=== PATIENT | male | born 1955 | race Caucasian/White ===

== ENCOUNTER → 2022-06-15 | Outpatient (REF) | payer OTHER | LOC: M LAB REF 18:50 | PROVIDERS: ATTEND Student in an Organized Health Care Education/Training Program | DX: R19.7 Diarrhea, unspecified (principal) ==

== ENCOUNTER → 2022-07-09 | Outpatient (CLI) | payer OTHER, MEDICAID ==
[2022-07-09 13:17] LABS: BASO # 0.1 10^3/uL (0.0-0.2); BASO % 1.3 % (0.0-1.0); EOS # 0.2 10^3/uL (0.0-0.5); EOS % 2.8 % (0.0-3.0); HEMATOCRIT 47.6 % (42.0-52.0); HEMOGLOBIN 15.8 g/dl (13.5-17.5); LYMPH # 1.7 10^3/uL (1.5-5.0); LYMPH % 30.7 % (24.0-44.0); MEAN CORPUSCULAR HEMOGLOBIN 31.5 pg (27.0-33.0); MEAN CORPUSCULAR HGB CONC 33.2 g/dl (32.0-36.5); MONO # 0.5 10^3/uL (0.0-0.8); NEUTROPHILS % 55.8 % (36.0-66.0); PLATELET COUNT, AUTOMATED 222 10^3/uL (150-450); RED BLOOD COUNT 5.01 10^6/uL (4.30-6.10); WHITE BLOOD COUNT 5.4 10^3/uL (4.0-10.0)
[2022-07-09 13:52] LABS: ALBUMIN 3.6 G/DL (3.2-5.2); ALKALINE PHOSPHATASE 95 U/L (46-116); ALT/SGPT 26 U/L (7.0-40); AST/SGOT 16 U/L (<34); BILIRUBIN,TOTAL 0.4 MG/DL (0.3-1.2); BLOOD UREA NITROGEN 14 MG/DL (9-23); CARBON DIOXIDE LEVEL 29 MMOL/L (20-31); CHLORIDE LEVEL 105 MMOL/L (98-107); CHOLESTEROL LEVEL 120 MG/DL (<200); CHOLESTEROL RISK RATIO 4.24 (<5); CREATININE FOR GFR 0.87 MG/DL (0.70-1.30); GLOMERULAR FILTRATION RATE > 60.0 (>49); GLUCOSE, FASTING 134 MG/DL (74-106); HDL CHOLESTEROL 28.3 MG/DL (>40); LDL CHOLESTEROL 49.1 MG/DL (<100); NON-HDL-C 91.7 MG/DL; POTASSIUM SERUM 3.9 MMOL/L (3.5-5.1); SODIUM LEVEL 137 MMOL/L (136-145); TOTAL PROTEIN 5.9 G/DL (5.7-8.2); TRIGLYCERIDES LEVEL 213 MG/DL (<150)
[2022-07-09 16:24] LABS: HEMOGLOBIN A1c 5.9 % (4.0-6.0)
== END ==
LOC: M WUC 09:48
PROVIDERS: ATTEND Student in an Organized Health Care Education/Training Program
DX: Z00.00 Encounter for general adult medical examination without abnormal findings (principal); R73.03 Prediabetes; I10 Essential (primary) hypertension

== ENCOUNTER 2022-10-09 10:03 | Day surgery (SDC) | payer OTHER ==
[~2022-10-09] VITALS: Ht 175.3 cm; Wt 111.6 kg
[~2022-10-09 10:03] MED LIST: ACYC1TAB PO; AMLO1TAB24 PO; ATOR1TAB19 PO; CLON1TAB17 PO; LISI20TA37 PO; MAGN200T PO; METO1TAB7 PO; NS 1,000 ML IV ONE; ZINC100T3 PO
[2022-10-09] MEDS ORDERED: propofoL 200 MG/20 ML VIAL As Ordered ONE ×2 (11:36→11:55)
[2022-10-09] MEDS ORDERED: GLYCOPYRROLATE INJ 0.2 MG/ML 2 ML VIAL As Ordered ONE (11:36)
[2022-10-09] MEDS ORDERED: LIDOCAINE 2% 100MG/5ML SDV (FOR ANES.) As Ordered ONE (11:36)
[2022-10-09 13:00] VITALS: BP 145/77; O2SAT 96
== END 2022-10-09 12:55 | disposition home or self-care (01) ==
LOC: M OPP 10:03
PROVIDERS: ATTEND Internal Medicine Gastroenterology
DX: Z12.11 Encounter for screening for malignant neoplasm of colon (principal); Z86.010 Personal history of colon polyps; K62.82 Dysplasia of anus; D12.2 Benign neoplasm of ascending colon; K63.5 Polyp of colon; K62.0 Anal polyp; K64.8 Other hemorrhoids; F17.200 Nicotine dependence, unspecified, uncomplicated; Z79.02 Long term (current) use of antithrombotics/antiplatelets; Z79.2 Long term (current) use of antibiotics; Z79.899 Other long term (current) drug therapy

== ENCOUNTER → 2023-05-07 | Outpatient (CLI) | payer OTHER, MEDICAID, MEDICARE ==
[~2023-05-07] MED LIST changes: -NS 1,000 ML IV ONE
== END ==
LOC: M WUC 09:18
PROVIDERS: ATTEND Family Medicine
DX: M25.512 Pain in left shoulder (principal)

== ENCOUNTER → 2023-05-13 | Outpatient (REF) | payer MEDICARE, MEDICAID | LOC: M SFHCDERM 12:38 | PROVIDERS: ATTEND Nurse Practitioner Family | DX: L57.0 Actinic keratosis (principal); C44.529 Squamous cell carcinoma of skin of other part of trunk ==

== ENCOUNTER → 2023-10-22 | Outpatient (CLI) | payer MEDICARE, MEDICAID ==
[2023-10-22 13:59] LABS: HEMATOCRIT 49.3 % (42.0-52.0); HEMOGLOBIN 17.2 g/dl (13.5-17.5); MEAN CORPUSCULAR HEMOGLOBIN 32.1 pg (27.0-33.0); MEAN CORPUSCULAR HGB CONC 34.9 g/dl (32.0-36.5); MEAN CORPUSCULAR VOLUME 92.1 fl (80.0-96.0); PLATELET COUNT, AUTOMATED 226 10^3/uL (150-450); RED BLOOD COUNT 5.35 10^6/uL (4.30-6.10); WHITE BLOOD COUNT 7.3 10^3/uL (4.0-10.0)
[2023-10-22 14:01] LABS: ALBUMIN 4.1 G/DL (3.2-5.2); ALKALINE PHOSPHATASE 81 U/L (46-116); ALT/SGPT 19 U/L (7.0-40); AST/SGOT < 8 U/L (<34); BILIRUBIN,TOTAL 0.5 MG/DL (0.3-1.2); BLOOD UREA NITROGEN 23 MG/DL (9-23); CALCIUM LEVEL 9.1 MG/DL (8.3-10.6); CARBON DIOXIDE LEVEL 28 MMOL/L (20-31); CHLORIDE LEVEL 103 MMOL/L (98-107); CHOLESTEROL LEVEL 112 MG/DL (<200); CHOLESTEROL RISK RATIO 4.14 (<5); CREATININE FOR GFR 0.92 MG/DL (0.70-1.30); GLOMERULAR FILTRATION RATE > 60.0 (>49); GLUCOSE, FASTING 133 MG/DL (74-106); LDL CHOLESTEROL 55.4 MG/DL (<100); POTASSIUM SERUM 3.6 MMOL/L (3.5-5.1); SODIUM LEVEL 137 MMOL/L (136-145); TOTAL PROTEIN 6.7 G/DL (5.7-8.2); TRIGLYCERIDES LEVEL 148 MG/DL (<150)
[2023-10-22 14:03] LABS: THYROID STIMULATING HORMONE 0.833 uIU/ML (0.55-4.78)
== END ==
LOC: M WUC 09:39
PROVIDERS: ATTEND Internal Medicine Cardiovascular Disease
DX: I10 Essential (primary) hypertension (principal); R06.02 Shortness of breath; E78.5 Hyperlipidemia, unspecified

== ENCOUNTER → 2023-10-27 | Outpatient (CLI) | payer MEDICARE, MEDICAID | LOC: M PLAIMG 08:16 | PROVIDERS: ATTEND Internal Medicine Cardiovascular Disease | DX: R06.02 Shortness of breath (principal) ==

== ENCOUNTER 2023-11-01 14:41 | Inpatient (IN) | payer MEDICARE, MEDICAID ==
[~2023-11-01] VITALS: Ht 175.3 cm; Wt 118.4 kg
[2023-11-01 00:47] VITALS: BP 176/98; TEMP 97.6; O2SAT 97
[~2023-11-01 14:41] MED LIST changes: -AMLO1TAB25 PO; -BUPR150T12 PO; -CLON1TAB8 PO
[2023-11-01 15:53] LABS: BASO % 0.5 % (0.0-1.0); EOS # 0.1 10^3/uL (0.0-0.5); EOS % 0.6 % (0.0-3.0); HEMATOCRIT 49.2 % (42.0-52.0); HEMOGLOBIN 17.7 g/dl (13.5-17.5); LYMPH # 1.4 10^3/uL (1.5-5.0); LYMPH % 15.7 % (24.0-44.0); MEAN CORPUSCULAR HEMOGLOBIN 32.2 pg (27.0-33.0); MEAN CORPUSCULAR VOLUME 89.5 fl (80.0-96.0); MONO # 0.8 10^3/uL (0.0-0.8); MONO % 8.8 % (2.0-8.0); NEUTROPHILS # 6.6 10^3/uL (1.5-8.5); NEUTROPHILS % 73.8 % (36.0-66.0); PLATELET COUNT, AUTOMATED 220 10^3/uL (150-450); WHITE BLOOD COUNT 8.9 10^3/uL (4.0-10.0)
[2023-11-01 16:16] LABS: CK-MB VALUE MASS 1.2 NG/ML (<3.6)
[2023-11-01 16:18] LABS: ALKALINE PHOSPHATASE 76 U/L (46-116); ALT/SGPT 17 U/L (7.0-40); AST/SGOT 11 U/L (<34); BILIRUBIN,DIRECT 0.3 MG/DL (<0.4); BILIRUBIN,TOTAL 0.9 MG/DL (0.3-1.2); BLOOD UREA NITROGEN 16 MG/DL (9-23); CARBON DIOXIDE LEVEL 26 MMOL/L (20-31); CHLORIDE LEVEL 103 MMOL/L (98-107); CREATININE FOR GFR 0.92 MG/DL (0.70-1.30); GLOMERULAR FILTRATION RATE > 60.0 (>49); GLUCOSE, FASTING 91 MG/DL (74-106); POTASSIUM SERUM 4.3 MMOL/L (3.5-5.1); SODIUM LEVEL 135 MMOL/L (136-145); TOTAL PROTEIN 6.9 G/DL (5.7-8.2)
[2023-11-01 16:19] LABS: THYROID STIMULATING HORMONE 1.038 uIU/ML (0.55-4.78); THYROXINE (T4) 10.7 UG/DL (4.5-10.9)
[2023-11-01 16:24] LABS: CPK CREATINE PHOSPHOKINASE 56 U/L (46-171); MB/CK RELATIVE INDEX 2.14 (< OR =4)
[2023-11-01] MEDS ORDERED: ISOVUE-370 76% 100ML VIAL As Ordered ONE (18:22)
[2023-11-01 19:18] LABS: CK-MB VALUE MASS 1.5 NG/ML (<3.6)
[2023-11-01 19:19] LABS: MB/CK RELATIVE INDEX 2.34 (< OR =4)
[2023-11-01] MEDS ORDERED: CLON1TAB8 PO (20:36)
[2023-11-01] MEDS ORDERED: AMLO1TAB25 PO (20:36)
[2023-11-01] MEDS ORDERED: BUPR150T12 PO (20:38)
[2023-11-01] MEDS ORDERED: HOME MED LIST COMPLETE! XX SCH (20:40)
[2023-11-01] MEDS ORDERED: ONDANSETRON 4MG 2ML VIAL IV PRN (21:00)
[2023-11-01] MEDS: DOCUSATE SODIUM 100MG CAPSULE PO SCH (21:00)
[2023-11-01] MEDS ORDERED: BISACODYL 10MG SUPP PR PRN (21:00)
[2023-11-01] MEDS ORDERED: LEVALBUTEROL 1.25MG 0.5ML CONCENTRATE NEB NEB PRN (21:00)
[2023-11-01 22:14] LABS: ABG BASE EXCESS 0.2 (-2.0-2.0); ABG HCO3 23.1 MMOL/L (22.0-26.0); ABG O2 SATURATION 95.7 % (95.0-99.0); ABG PARTIAL PRESSURE CO2 33.5 mmHg (35.0-45.0); ABG PARTIAL PRESSURE O2 76.6 mmHg (75.0-100.0); ABG STANDARD HCO3 24.6 MMOL/L. (22.0-26.0); ABG TOTAL CO2 24.2 MMOL/L (23.0-31.0); ABG pH (ARTERIAL) 7.457 UNITS (7.350-7.450)
[2023-11-01] MEDS: clonazePAM 1 MG TAB PO SCH (22:34)
[2023-11-01] MEDS: ACYCLOVIR 200 MG CAPSULE PO SCH (22:34)
[2023-11-01] MEDS: ATORVASTATIN 10 MG TAB PO SCH (22:34)
[2023-11-01] MEDS: METOPROLOL SUCC (TopROL XL) 50MG **XL** TAB PO SCH (22:34)
[2023-11-01] MEDS: buPROPion **XL** TABLET 150MG (WELLBUTRIN XL) PO SCH (22:34)
[2023-11-01] MEDS: HEPARIN SOD (PORCINE) 5000UNITS/ML 1ML VIAL/SYRINGE SC SCH (22:38)
[2023-11-02] VITALS (22 sets, daily range): BP systolic 131–176; BP diastolic 66–98; TEMP 97–97.8; O2SAT 89–99
[2023-11-02] MEDS: LEVALBUTEROL 1.25MG 0.5ML CONCENTRATE NEB NEB SCH (01:09)
[2023-11-02 05:41] LABS: BASO # 0.1 10^3/uL (0.0-0.2); BASO % 0.7 % (0.0-1.0); EOS # 0.1 10^3/uL (0.0-0.5); EOS % 1.5 % (0.0-3.0); HEMATOCRIT 47.2 % (42.0-52.0); HEMOGLOBIN 16.5 g/dl (13.5-17.5); LYMPH # 1.4 10^3/uL (1.5-5.0); LYMPH % 18.4 % (24.0-44.0); MEAN CORPUSCULAR HEMOGLOBIN 31.4 pg (27.0-33.0); MEAN CORPUSCULAR VOLUME 89.7 fl (80.0-96.0); MONO # 0.9 10^3/uL (0.0-0.8); MONO % 11.6 % (2.0-8.0); NEUTROPHILS % 67.1 % (36.0-66.0); PLATELET COUNT, AUTOMATED 207 10^3/uL (150-450); RED BLOOD COUNT 5.26 10^6/uL (4.30-6.10); WHITE BLOOD COUNT 7.5 10^3/uL (4.0-10.0)
[2023-11-02 05:57] LABS: BLOOD UREA NITROGEN 13 MG/DL (9-23); CALCIUM LEVEL 8.2 MG/DL (8.3-10.6); CARBON DIOXIDE LEVEL 30 MMOL/L (20-31); CHLORIDE LEVEL 101 MMOL/L (98-107); CREATININE FOR GFR 0.94 MG/DL (0.70-1.30); GLOMERULAR FILTRATION RATE > 60.0 (>49); GLUCOSE, FASTING 95 MG/DL (74-106); POTASSIUM SERUM 3.6 MMOL/L (3.5-5.1); SODIUM LEVEL 137 MMOL/L (136-145)
[2023-11-02] MEDS: MOM 30ML SUSPENSION UDC PO SCH (11:00)
[2023-11-02] MEDS: PANTOPRAZOLE 40MG TAB (PROTONIX) PO SCH (11:00)
[2023-11-02 11:21] LABS: PH BODY FLUID 7.654 UNITS (NOT ESTABLISHED); SOURCE, BODY FLUID pH PLEURAL
[2023-11-02 11:44] LABS: SOURCE, BODY FLUID ALBUMIN PLEURAL
[2023-11-02 11:49] LABS: SOURCE, BODY FLUID GLUCOSE PLEURAL; SOURCE, BODY FLUID TRIG PLEURAL; TRIGLYCERIDE, BODY FLUID 38 MG/DL (NOT ESTABLISHED)
[2023-11-02 11:50] LABS: LDH, BODY FLUID 449 U/L (NOT ESTABLISHED); SOURCE, BODY FLUID LDH PLEURAL
[2023-11-02 11:51] LABS: AMYLASE, BODY FLUID 31 U/L (NOT ESTABLISHED); CHOLESTEROL, BODY FLUID 48 MG/DL (NOT ESTABLISHED); SOURCE, BODY FLUID AMYLASE PLEURAL; SOURCE, BODY FLUID CHOL PLEURAL
[2023-11-02 12:07] LABS: APPEARANCE, BODY FLUID HAZY (CLEAR); PLEURAL FL COLOR YELLOW (COLORLESS); SOURCE, BODY FLUID PLEURAL
[2023-11-02 12:09] LABS: SOURCE, BODY FLUID TOT PROTEIN PLEURAL; TOTAL PROTEIN, BODY FLUID 3.7 G/DL (NOT ESTABLISHED)
[2023-11-02] MEDS: ACETAMINOPHEN TAB 650MG DOSE (2X325MG) PO PRN (12:59)
[2023-11-02] MEDS: KETOROLAC 30 MG/ML 1ML VIAL IV PRN (21:07)
[2023-11-03] VITALS (26 sets, daily range): BP systolic 119–164; BP diastolic 72–90; TEMP 96.9–97.8; O2SAT 90–97
[2023-11-03 05:16] LABS: BASO # 0.1 10^3/uL (0.0-0.2); BASO % 0.6 % (0.0-1.0); EOS # 0.2 10^3/uL (0.0-0.5); HEMATOCRIT 45.8 % (42.0-52.0); HEMOGLOBIN 15.8 g/dl (13.5-17.5); LYMPH # 1.4 10^3/uL (1.5-5.0); LYMPH % 17.1 % (24.0-44.0); MEAN CORPUSCULAR HEMOGLOBIN 31.4 pg (27.0-33.0); MEAN CORPUSCULAR HGB CONC 34.5 g/dl (32.0-36.5); MEAN CORPUSCULAR VOLUME 91.1 fl (80.0-96.0); MONO # 0.9 10^3/uL (0.0-0.8); MONO % 10.3 % (2.0-8.0); NEUTROPHILS # 5.7 10^3/uL (1.5-8.5); PLATELET COUNT, AUTOMATED 214 10^3/uL (150-450); RED BLOOD COUNT 5.03 10^6/uL (4.30-6.10); WHITE BLOOD COUNT 8.3 10^3/uL (4.0-10.0)
[2023-11-03 05:42] LABS: BLOOD UREA NITROGEN 20 MG/DL (9-23); CALCIUM LEVEL 7.9 MG/DL (8.3-10.6); CARBON DIOXIDE LEVEL 28 MMOL/L (20-31); CHLORIDE LEVEL 102 MMOL/L (98-107); CREATININE FOR GFR 1.06 MG/DL (0.70-1.30); GLOMERULAR FILTRATION RATE > 60.0 (>49); GLUCOSE, FASTING 98 MG/DL (74-106); POTASSIUM SERUM 3.6 MMOL/L (3.5-5.1); SODIUM LEVEL 135 MMOL/L (136-145)
[2023-11-03 08:02] LABS: CORTISOL AM 12.4 UG/DL (4.3-22.4)
[2023-11-03] MEDS: KETOROLAC 30 MG/ML 1ML VIAL IV PRN (23:38)
[2023-11-04] VITALS (13 sets, daily range): BP systolic 127–169; BP diastolic 66–96; TEMP 97–97.9; O2SAT 94–97
[2023-11-04 06:06] LABS: BASO % 0.6 % (0.0-1.0); EOS # 0.2 10^3/uL (0.0-0.5); EOS % 2.7 % (0.0-3.0); HEMATOCRIT 44.2 % (42.0-52.0); HEMOGLOBIN 15.2 g/dl (13.5-17.5); LYMPH # 1.2 10^3/uL (1.5-5.0); LYMPH % 17.4 % (24.0-44.0); MEAN CORPUSCULAR HEMOGLOBIN 31.5 pg (27.0-33.0); MEAN CORPUSCULAR HGB CONC 34.4 g/dl (32.0-36.5); MEAN CORPUSCULAR VOLUME 91.5 fl (80.0-96.0); MONO # 0.7 10^3/uL (0.0-0.8); MONO % 10.3 % (2.0-8.0); NEUTROPHILS # 4.8 10^3/uL (1.5-8.5); NEUTROPHILS % 68.4 % (36.0-66.0); PLATELET COUNT, AUTOMATED 205 10^3/uL (150-450); RED BLOOD COUNT 4.83 10^6/uL (4.30-6.10); WHITE BLOOD COUNT 7.1 10^3/uL (4.0-10.0)
[2023-11-04 06:39] LABS: BLOOD UREA NITROGEN 20 MG/DL (9-23); CALCIUM LEVEL 8.1 MG/DL (8.3-10.6); CARBON DIOXIDE LEVEL 28 MMOL/L (20-31); CHLORIDE LEVEL 102 MMOL/L (98-107); CREATININE FOR GFR 0.93 MG/DL (0.70-1.30); GLOMERULAR FILTRATION RATE > 60.0 (>49); GLUCOSE, FASTING 106 MG/DL (74-106); POTASSIUM SERUM 3.6 MMOL/L (3.5-5.1); SODIUM LEVEL 137 MMOL/L (136-145)
[2023-11-04 10:10] LABS: APPEARANCE, URINE CLEAR (CLEAR); BACTERIA, URINE AUTO NEGATIVE (NEGATIVE); BILIRUBIN, URINE AUTO NEGATIVE (NEGATIVE); BLOOD, URINE BLOOD NEGATIVE (NEGATIVE); COLOR, URINE YELLOW (YELLOW); GLUCOSE, URINE (UA) AUTO NEGATIVE (NEGATIVE); KETONE, URINE AUTO NEGATIVE (NEGATIVE); LEUKOCYTE ESTERASE, URINE AUTO NEGATIVE (NEGATIVE); MUCUS, URINE SMALL (NEGATIVE); NITRITE, URINE AUTO NEGATIVE (NEGATIVE); PROTEIN, URINE AUTO 1+ mg/dL (NEGATIVE); RBC, URINE AUTO 1 /HPF (0-3); SPECIFIC GRAVITY URINE AUTO 1.028 (1.002-1.035); SQUAMOUS EPITHELIAL CELL UR AU 0 /HPF (0-6); UROBILINOGEN, URINE AUTO 0.2 mg/dL (0.0-2.0); WBC, URINE AUTO 1 /HPF (0-3)
[2023-11-04 12:43] LABS: INR 1.06; PROTHROMBIN TIME 13.5 SECONDS (12.5-14.5)
[2023-11-04] MEDS: CARVedilol 12.5 MG TAB PO SCH (13:04)
[2023-11-04] MEDS: dexAMETHasone 1 MG TAB PO ONE (14:57)
[2023-11-05] VITALS (17 sets, daily range): BP systolic 133–172; BP diastolic 65–101; TEMP 97–98.2; O2SAT 92–98
[2023-11-05 07:20] LABS: BASO % 0.4 % (0.0-1.0); EOS # 0.2 10^3/uL (0.0-0.5); EOS % 2.2 % (0.0-3.0); HEMATOCRIT 45.4 % (42.0-52.0); HEMOGLOBIN 15.9 g/dl (13.5-17.5); LYMPH # 1.1 10^3/uL (1.5-5.0); LYMPH % 14.2 % (24.0-44.0); MEAN CORPUSCULAR HEMOGLOBIN 31.8 pg (27.0-33.0); MEAN CORPUSCULAR VOLUME 90.8 fl (80.0-96.0); MONO # 0.6 10^3/uL (0.0-0.8); MONO % 7.2 % (2.0-8.0); NEUTROPHILS # 5.8 10^3/uL (1.5-8.5); NEUTROPHILS % 75.5 % (36.0-66.0); PLATELET COUNT, AUTOMATED 237 10^3/uL (150-450); WHITE BLOOD COUNT 7.7 10^3/uL (4.0-10.0)
[2023-11-05 07:50] LABS: BLOOD UREA NITROGEN 14 MG/DL (9-23); CALCIUM LEVEL 8.4 MG/DL (8.3-10.6); CARBON DIOXIDE LEVEL 28 MMOL/L (20-31); CHLORIDE LEVEL 104 MMOL/L (98-107); CREATININE FOR GFR 0.79 MG/DL (0.70-1.30); GLOMERULAR FILTRATION RATE > 60.0 (>49); GLUCOSE, FASTING 114 MG/DL (74-106); POTASSIUM SERUM 4.4 MMOL/L (3.5-5.1); SODIUM LEVEL 137 MMOL/L (136-145)
[2023-11-05] MEDS ORDERED: fentaNYL 100 MCG/2 ML INJECTION As Ordered ONE (10:08)
[2023-11-05] MEDS ORDERED: LIDOCAINE 1% MDV 20ML VIAL As Ordered ONE (10:09)
[2023-11-05] MEDS ORDERED: MIDAZOLAM INJ 2MG/2ML VIAL As Ordered ONE (10:09)
[2023-11-05] MEDS: NS 1,000 ML IV SCH (12:50)
[2023-11-05] MEDS: CARVedilol 12.5 MG TAB PO SCH (12:54)
[2023-11-05] MEDS: FUROSEMIDE 40MG/4ML VIAL IV ONE (17:44)
[2023-11-06] VITALS (24 sets, daily range): BP systolic 126–180; BP diastolic 67–96; TEMP 97–98; O2SAT 90–98
[2023-11-06 04:24] LABS: BASO % 0.7 % (0.0-1.0); EOS # 0.2 10^3/uL (0.0-0.5); EOS % 3.7 % (0.0-3.0); HEMATOCRIT 42.7 % (42.0-52.0); HEMOGLOBIN 14.5 g/dl (13.5-17.5); LYMPH # 1.4 10^3/uL (1.5-5.0); LYMPH % 22.3 % (24.0-44.0); MEAN CORPUSCULAR VOLUME 91.4 fl (80.0-96.0); MONO # 0.6 10^3/uL (0.0-0.8); MONO % 9.6 % (2.0-8.0); NEUTROPHILS # 3.9 10^3/uL (1.5-8.5); PLATELET COUNT, AUTOMATED 214 10^3/uL (150-450); RED BLOOD COUNT 4.67 10^6/uL (4.30-6.10); WHITE BLOOD COUNT 6.2 10^3/uL (4.0-10.0)
[2023-11-06 04:47] LABS: BLOOD UREA NITROGEN 16 MG/DL (9-23); CALCIUM LEVEL 8.2 MG/DL (8.3-10.6); CARBON DIOXIDE LEVEL 28 MMOL/L (20-31); CHLORIDE LEVEL 104 MMOL/L (98-107); GLOMERULAR FILTRATION RATE > 60.0 (>49); GLUCOSE, FASTING 106 MG/DL (74-106); POTASSIUM SERUM 3.8 MMOL/L (3.5-5.1); SODIUM LEVEL 137 MMOL/L (136-145)
[2023-11-06] MEDS: FUROSEMIDE 40MG/4ML VIAL IV ONE (10:24)
[2023-11-06] MEDS: CARVedilol 12.5 MG TAB PO ONE (13:06)
[2023-11-06] MEDS: CARVedilol 12.5 MG TAB PO SCH (20:05)
[2023-11-07] VITALS (28 sets, daily range): BP systolic 127–167; BP diastolic 73–88; TEMP 96.2–97.8; O2SAT 90–96
[2023-11-07 05:47] LABS: BASO # 0.1 10^3/uL (0.0-0.2); EOS # 0.2 10^3/uL (0.0-0.5); EOS % 3.8 % (0.0-3.0); HEMATOCRIT 40.3 % (42.0-52.0); HEMOGLOBIN 14.1 g/dl (13.5-17.5); LYMPH # 1.3 10^3/uL (1.5-5.0); LYMPH % 21.5 % (24.0-44.0); MEAN CORPUSCULAR HEMOGLOBIN 31.4 pg (27.0-33.0); MEAN CORPUSCULAR VOLUME 89.8 fl (80.0-96.0); MONO # 0.6 10^3/uL (0.0-0.8); NEUTROPHILS # 3.7 10^3/uL (1.5-8.5); PLATELET COUNT, AUTOMATED 213 10^3/uL (150-450); RED BLOOD COUNT 4.49 10^6/uL (4.30-6.10); WHITE BLOOD COUNT 5.8 10^3/uL (4.0-10.0)
[2023-11-07 06:18] LABS: BLOOD UREA NITROGEN 18 MG/DL (9-23); CALCIUM LEVEL 8.1 MG/DL (8.3-10.6); CARBON DIOXIDE LEVEL 28 MMOL/L (20-31); CHLORIDE LEVEL 103 MMOL/L (98-107); CREATININE FOR GFR 0.94 MG/DL (0.70-1.30); GLOMERULAR FILTRATION RATE > 60.0 (>49); GLUCOSE, FASTING 109 MG/DL (74-106); POTASSIUM SERUM 3.9 MMOL/L (3.5-5.1); SODIUM LEVEL 135 MMOL/L (136-145)
[2023-11-07] MEDS: CHLORTHALIDONE 25 MG TAB PO SCH (08:55)
[2023-11-08] VITALS (27 sets, daily range): BP systolic 120–157; BP diastolic 65–80; TEMP 97–98; O2SAT 90–100
[2023-11-08] MEDS ORDERED: PROHANCE 279.3MG/ML 5ML VIAL As Ordered ONE (17:00)
[2023-11-08] MEDS ORDERED: PROHANCE 279.3MG/ML 15ML VIAL As Ordered ONE (17:00)
[2023-11-09] VITALS (31 sets, daily range): BP systolic 122–163; BP diastolic 73–87; TEMP 97.1–99; O2SAT 88–96
[2023-11-09 08:08] LABS: BASO # 0.1 10^3/uL (0.0-0.2); BASO % 0.7 % (0.0-1.0); EOS # 0.2 10^3/uL (0.0-0.5); EOS % 2.8 % (0.0-3.0); HEMATOCRIT 43.2 % (42.0-52.0); HEMOGLOBIN 15.2 g/dl (13.5-17.5); LYMPH % 11.9 % (24.0-44.0); MEAN CORPUSCULAR HEMOGLOBIN 31.3 pg (27.0-33.0); MEAN CORPUSCULAR HGB CONC 35.2 g/dl (32.0-36.5); MEAN CORPUSCULAR VOLUME 88.9 fl (80.0-96.0); MONO # 0.8 10^3/uL (0.0-0.8); MONO % 9.5 % (2.0-8.0); NEUTROPHILS # 6.2 10^3/uL (1.5-8.5); PLATELET COUNT, AUTOMATED 231 10^3/uL (150-450); RED BLOOD COUNT 4.86 10^6/uL (4.30-6.10); WHITE BLOOD COUNT 8.3 10^3/uL (4.0-10.0)
[2023-11-09 08:33] LABS: BLOOD UREA NITROGEN 14 MG/DL (9-23); CALCIUM LEVEL 8.2 MG/DL (8.3-10.6); CARBON DIOXIDE LEVEL 28 MMOL/L (20-31); CHLORIDE LEVEL 102 MMOL/L (98-107); CREATININE FOR GFR 0.83 MG/DL (0.70-1.30); GLOMERULAR FILTRATION RATE > 60.0 (>49); GLUCOSE, FASTING 114 MG/DL (74-106); MAGNESIUM LEVEL 1.6 MG/DL (1.8-2.4); SODIUM LEVEL 133 MMOL/L (136-145)
[2023-11-09] MEDS: MAG SULF 1GM/100ML (MAG RUN) 1 GM in IV 1 EA IV SCH (12:24)
[2023-11-09] MEDS: oxyCODONE 5MG TAB PO PRN (12:24)
[2023-11-10] VITALS (52 sets, daily range): BP systolic 94–157; BP diastolic 51–82; TEMP 96.8–98.1; O2SAT 90–99
[2023-11-10] MEDS ORDERED: flumazeniL 0.5MG/5ML VIAL IV PRN (06:00)
[2023-11-10 06:23] LABS: BASO # 0.1 10^3/uL (0.0-0.2); BASO % 0.5 % (0.0-1.0); EOS # 0.2 10^3/uL (0.0-0.5); EOS % 1.9 % (0.0-3.0); HEMATOCRIT 46.2 % (42.0-52.0); HEMOGLOBIN 15.8 g/dl (13.5-17.5); LYMPH # 1.3 10^3/uL (1.5-5.0); LYMPH % 13.9 % (24.0-44.0); MEAN CORPUSCULAR HEMOGLOBIN 31.2 pg (27.0-33.0); MEAN CORPUSCULAR HGB CONC 34.2 g/dl (32.0-36.5); MEAN CORPUSCULAR VOLUME 91.1 fl (80.0-96.0); MONO # 1.4 10^3/uL (0.0-0.8); NEUTROPHILS # 6.6 10^3/uL (1.5-8.5); NEUTROPHILS % 68.7 % (36.0-66.0); PLATELET COUNT, AUTOMATED 255 10^3/uL (150-450); RED BLOOD COUNT 5.07 10^6/uL (4.30-6.10); WHITE BLOOD COUNT 9.6 10^3/uL (4.0-10.0)
[2023-11-10 06:54] LABS: BLOOD UREA NITROGEN 15 MG/DL (9-23); CALCIUM LEVEL 8.3 MG/DL (8.3-10.6); CARBON DIOXIDE LEVEL 32 MMOL/L (20-31); CHLORIDE LEVEL 97 MMOL/L (98-107); CREATININE FOR GFR 0.95 MG/DL (0.70-1.30); GLOMERULAR FILTRATION RATE > 60.0 (>49); GLUCOSE, FASTING 125 MG/DL (74-106); MAGNESIUM LEVEL 1.9 MG/DL (1.8-2.4); POTASSIUM SERUM 3.9 MMOL/L (3.5-5.1); SODIUM LEVEL 133 MMOL/L (136-145)
[2023-11-10] MEDS: oxyCODONE 5MG TAB PO PRN (09:23)
[2023-11-10] MEDS: NS 1,000 ML IV SCH (10:15)
[2023-11-10] MEDS: ceFAZolin SOD 2 GM in IV 1 EA IV ONE (10:23)
[2023-11-10] MEDS: MIDAZOLAM INJ 2MG/2ML VIAL IV PRN (10:29)
[2023-11-10] MEDS: LIDOCAINE 1% MDV 20ML VIAL SC PRN (10:33)
[2023-11-10 20:03] LABS: ALDOS/RENIN RATIO 2.2 Ratio (0.9-28.9); RENIN ACTIVITY 4.14 ng/mL/h (0.25-5.82)
[2023-11-11] VITALS (18 sets, daily range): BP systolic 101–157; BP diastolic 59–76; TEMP 96.9–97.7; O2SAT 89–96
[2023-11-11 05:50] LABS: BASO # 0.1 10^3/uL (0.0-0.2); BASO % 0.5 % (0.0-1.0); EOS # 0.2 10^3/uL (0.0-0.5); EOS % 2.2 % (0.0-3.0); LYMPH # 1.4 10^3/uL (1.5-5.0); LYMPH % 14.9 % (24.0-44.0); MEAN CORPUSCULAR HEMOGLOBIN 31.3 pg (27.0-33.0); MEAN CORPUSCULAR VOLUME 89.3 fl (80.0-96.0); MONO # 1.1 10^3/uL (0.0-0.8); MONO % 12.4 % (2.0-8.0); NEUTROPHILS # 6.3 10^3/uL (1.5-8.5); NEUTROPHILS % 68.9 % (36.0-66.0); PLATELET COUNT, AUTOMATED 245 10^3/uL (150-450); RED BLOOD COUNT 4.41 10^6/uL (4.30-6.10); WHITE BLOOD COUNT 9.1 10^3/uL (4.0-10.0)
[2023-11-11 06:05] LABS: HEMATOCRIT 39.4 % (42.0-52.0); HEMOGLOBIN 13.8 g/dl (13.5-17.5)
[2023-11-11 06:15] LABS: CALCIUM LEVEL 7.9 MG/DL (8.3-10.6); CREATININE FOR GFR 1.28 MG/DL (0.70-1.30); GLOMERULAR FILTRATION RATE 59.9 (>49); MAGNESIUM LEVEL 2.1 MG/DL (1.8-2.4); POTASSIUM SERUM 4.2 MMOL/L (3.5-5.1)
[2023-11-11] MEDS: NS 1,000 ML IV SCH (09:37)
[2023-11-11 19:18] LABS: BLOOD UREA NITROGEN 22 MG/DL (9-23); CALCIUM LEVEL 7.8 MG/DL (8.3-10.6); CARBON DIOXIDE LEVEL 26 MMOL/L (20-31); CHLORIDE LEVEL 98 MMOL/L (98-107); GLOMERULAR FILTRATION RATE > 60.0 (>49); GLUCOSE, FASTING 176 MG/DL (74-106); POTASSIUM SERUM 3.9 MMOL/L (3.5-5.1); SODIUM LEVEL 129 MMOL/L (136-145)
[2023-11-12] VITALS (10 sets, daily range): BP systolic 112–131; BP diastolic 57–69; TEMP 97–97.3; O2SAT 92–97
[2023-11-12 04:07] LABS: CREATININE,RANDOM URINE 219.6 mg/dL (Not Estab.); URINE METANEPHR/CREAT RATIO 0.6 (0.0-1.0)
[2023-11-12 06:12] LABS: BASO % 0.6 % (0.0-1.0); EOS # 0.2 10^3/uL (0.0-0.5); EOS % 2.6 % (0.0-3.0); HEMATOCRIT 38.1 % (42.0-52.0); HEMOGLOBIN 13.1 g/dl (13.5-17.5); LYMPH # 0.8 10^3/uL (1.5-5.0); LYMPH % 12.5 % (24.0-44.0); MEAN CORPUSCULAR HEMOGLOBIN 31.4 pg (27.0-33.0); MEAN CORPUSCULAR HGB CONC 34.4 g/dl (32.0-36.5); MEAN CORPUSCULAR VOLUME 91.4 fl (80.0-96.0); MONO # 0.8 10^3/uL (0.0-0.8); NEUTROPHILS # 4.4 10^3/uL (1.5-8.5); NEUTROPHILS % 70.7 % (36.0-66.0); PLATELET COUNT, AUTOMATED 241 10^3/uL (150-450); RED BLOOD COUNT 4.17 10^6/uL (4.30-6.10); WHITE BLOOD COUNT 6.2 10^3/uL (4.0-10.0)
[2023-11-12 06:44] LABS: BLOOD UREA NITROGEN 16 MG/DL (9-23); CALCIUM LEVEL 7.7 MG/DL (8.3-10.6); CARBON DIOXIDE LEVEL 31 MMOL/L (20-31); CHLORIDE LEVEL 101 MMOL/L (98-107); CREATININE FOR GFR 0.94 MG/DL (0.70-1.30); GLOMERULAR FILTRATION RATE > 60.0 (>49); GLUCOSE, FASTING 141 MG/DL (74-106); POTASSIUM SERUM 3.9 MMOL/L (3.5-5.1); SODIUM LEVEL 135 MMOL/L (136-145)
[2023-11-12] MEDS ORDERED: CARV12.5 PO (10:47)
[2023-11-12] MEDS ORDERED: OXYC-517 PO ×2 (10:47→11:18)
[2023-11-12] MEDS ORDERED: CARV25TA PO (11:17)
[2023-11-15 02:07] LABS: METANEPHRINE TOTAL URINE 74 ug/L (Undefined); METANEPHRINE URINE 185 ug/24 hr (58-276); NORMETANEPHRINE TOTAL URINE 352 ug/L (Undefined); NORMETANEPHRINE URINE 880 ug/24 hr (156-729)
[2023-11-16 11:22] LABS: CALCULATED TOTAL E AND NE 249 mcg/24 h (26-121); CATECHOLAMINES TOTAL VOLUME 2500 mL/24 h; DOPAMINE 651 mcg/24 h (52-480); EPINEPHRINE 27 mcg/24 h (2-24); NOREPINEPHRINE 222 mcg/24 h (15-100)
== END 2023-11-12 15:49 | disposition home health service (06) | DRG 687 ==
LOC: M ED 14:41 → M ED INP 21:00 → M PCU 11-02 00:42
PROVIDERS: ADMIT Thoracic Surgery (Cardiothoracic Vascular Surgery); ATTEND Internal Medicine
PROC: 0W9930Z Drainage of Right Pleural Cavity with Drainage Device, Percutaneous Approach (ICD-10-PCS; 2023-11-02)
PROC: 0TB03ZX Excision of Right Kidney, Percutaneous Approach, Diagnostic (ICD-10-PCS; principal; 2023-11-05 10:30)
PROC: 0W9930Z Drainage of Right Pleural Cavity with Drainage Device, Percutaneous Approach (ICD-10-PCS; 2023-11-10)
DX: C64.1 Malignant neoplasm of right kidney, except renal pelvis (principal); C78.01 Secondary malignant neoplasm of right lung; C78.02 Secondary malignant neoplasm of left lung; J90 Pleural effusion, not elsewhere classified; J98.11 Atelectasis; E87.1 Hypo-osmolality and hyponatremia; I10 Essential (primary) hypertension; E78.5 Hyperlipidemia, unspecified; F41.0 Panic disorder [episodic paroxysmal anxiety]; F32.A Depression, unspecified; F17.210 Nicotine dependence, cigarettes, uncomplicated; F10.21 Alcohol dependence, in remission; N28.1 Cyst of kidney, acquired; E27.8 Other specified disorders of adrenal gland; I71.43 Infrarenal abdominal aortic aneurysm, without rupture; E83.42 Hypomagnesemia; Z85.828 Personal history of other malignant neoplasm of skin; Z79.899 Other long term (current) drug therapy

== ENCOUNTER → 2023-11-01 | Outpatient (CLI) | payer MEDICARE, MEDICAID ==
[~2023-11-01] MED LIST changes: +AMLO1TAB25 PO; +BUPR150T12 PO; +CLON1TAB8 PO
== END ==
LOC: M RAD 14:19
PROVIDERS: ATTEND Internal Medicine Cardiovascular Disease
DX: F17.218 Nicotine dependence, cigarettes, with other nicotine-induced disorders (principal)

== ENCOUNTER → 2023-12-03 | Outpatient (CLI) | payer MEDICARE, MEDICAID ==
[~2023-12-03] MED LIST changes: +AMLO1TAB25 PO; +BUPR150T12 PO; +CARV12.5 PO; +CARV25TA PO; +CLON1TAB8 PO; +INLY5TAB PO; +OXYC-517 PO
== END ==
LOC: M WUC 12:38
PROVIDERS: ATTEND Thoracic Surgery (Cardiothoracic Vascular Surgery)
DX: J90 Pleural effusion, not elsewhere classified (principal); J98.11 Atelectasis

== ENCOUNTER → 2023-12-14 | Outpatient (CLI) | payer MEDICARE, MEDICAID | LOC: M PLARAD 14:21 | PROVIDERS: ATTEND Specialist | DX: C64.1 Malignant neoplasm of right kidney, except renal pelvis (principal) | CPT/HCPCS: 78815; A9552 ==

== ENCOUNTER → 2023-12-16 | Outpatient (CLI) | payer MEDICARE, MEDICAID | LOC: M WUC 10:15 | PROVIDERS: ATTEND Family Medicine | DX: M25.512 Pain in left shoulder (principal); M89.8X1 Other specified disorders of bone, shoulder ==

== ENCOUNTER → 2023-12-22 | Outpatient (CLI) | payer MEDICARE, MEDICAID ==
[~2023-12-22] MED LIST changes: +ACET300T47; +LIDOCAINE 1% MDV 20ML VIAL As Ordered ONE; +MIDAZOLAM INJ 2MG/2ML VIAL As Ordered ONE; +ceFAZolin 2 GM/D5W 50 ML IV BAG As Ordered ONE; +fentaNYL 100 MCG/2 ML INJECTION As Ordered ONE
[2023-12-22 07:06] VITALS: TEMP 96.5
[2023-12-22] MEDS: NS 1,000 ML IV SCH (07:38)
[2023-12-22] MEDS: ceFAZolin SOD 2 GM in IV 1 EA IV ONE (07:38)
[2023-12-22 09:10] VITALS: BP 142/77; O2SAT 96
== END ==
LOC: M IRPRO 06:49
PROVIDERS: ATTEND Specialist
DX: C64.9 Malignant neoplasm of unspecified kidney, except renal pelvis (principal)
CPT/HCPCS: 36561; 99152; 99153; C1894; J0690; J1642; J2250; J3010

== ENCOUNTER → 2023-12-27 | Outpatient (CLI) | payer MEDICARE, MEDICAID ==
[~2023-12-27] MED LIST changes: -MIDAZOLAM INJ 2MG/2ML VIAL As Ordered ONE; +[UNRECOGNIZED DRUG - OTHER] EXT; -ceFAZolin 2 GM/D5W 50 ML IV BAG As Ordered ONE; -fentaNYL 100 MCG/2 ML INJECTION As Ordered ONE
[2023-12-27 08:54] VITALS: TEMP 97.2
[2023-12-27 09:30] VITALS: BP 172/90; O2SAT 97
== END ==
LOC: M IRPRO 08:50
PROVIDERS: ATTEND Specialist
DX: C64.9 Malignant neoplasm of unspecified kidney, except renal pelvis (principal); R22.32 Localized swelling, mass and lump, left upper limb

== ENCOUNTER → 2023-12-31 | Outpatient (CLI) | payer MEDICARE, MEDICAID ==
[~2023-12-31] MED LIST changes: -LIDOCAINE 1% MDV 20ML VIAL As Ordered ONE
== END ==
LOC: M ONCR 13:32
PROVIDERS: ATTEND General Practice
DX: C79.51 Secondary malignant neoplasm of bone (principal); C64.2 Malignant neoplasm of left kidney, except renal pelvis; Z79.899 Other long term (current) drug therapy; Z80.49 Family history of malignant neoplasm of other genital organs; Z80.8 Family history of malignant neoplasm of other organs or systems; Z87.891 Personal history of nicotine dependence

== ENCOUNTER 2024-01-10 14:21 | Outpatient (RCR) | payer MEDICARE, MEDICAID ==
[2024-01-25] MEDS ORDERED: KETO2CR (09:02)
[2024-01-25] MEDS ORDERED: KETO2SHA8 (09:02)
== END 2024-01-27 ==
LOC: M ONCR 14:21
PROVIDERS: ATTEND General Practice
DX: Z51.0 Encounter for antineoplastic radiation therapy (principal); C79.51 Secondary malignant neoplasm of bone

== ENCOUNTER → 2024-01-21 | Outpatient (REF) | payer MEDICARE, MEDICAID ==
[~2024-01-21] MED LIST changes: +KETO2CR; +KETO2SHA8
== END ==
LOC: M SFHCDERM 16:45
PROVIDERS: ATTEND Nurse Practitioner Family
DX: D04.72 Carcinoma in situ of skin of left lower limb, including hip (principal)

== ENCOUNTER → 2024-03-27 | Outpatient (CLI) | payer MEDICARE, MEDICAID ==
[~2024-03-27] MED LIST changes: +LEVO50TA5 PO; +LEVO75TA4 PO
== END ==
LOC: M PLARAD 10:20
PROVIDERS: ATTEND Nurse Practitioner Women's Health
DX: C64.1 Malignant neoplasm of right kidney, except renal pelvis (principal)
CPT/HCPCS: 78815; A9552

== ENCOUNTER → 2024-04-12 | Outpatient (CLI) | payer MEDICARE | LOC: M ONCR 10:06 | PROVIDERS: ATTEND General Practice | DX: C79.51 Secondary malignant neoplasm of bone (principal); C64.1 Malignant neoplasm of right kidney, except renal pelvis; M25.512 Pain in left shoulder; Z92.3 Personal history of irradiation; Z79.632 Long term (current) use of antitumor antibiotic; Z79.899 Other long term (current) drug therapy; Z79.890 Hormone replacement therapy; Z87.891 Personal history of nicotine dependence; Z97.8 Presence of other specified devices ==

== ENCOUNTER → 2024-05-18 | Outpatient (CLI) | payer MEDICARE ==
[~2024-05-18] VITALS: Ht 177.8 cm; Wt 107.2 kg
[~2024-05-18] MED LIST changes: +LIDOCAINE 1% MDV 20ML VIAL As Ordered ONE; +NALOXONE INJ 0.4MG/1ML VIAL IV PRN; +NS (Normal Saline) 0.9% 1,000 ML IV SCH
[2024-05-18 13:42] VITALS: TEMP 97.4
[2024-05-18] MEDS: ceFAZolin SOD 2 GM in IV 1 EA IV ONE (14:36)
[2024-05-18] MEDS: fentaNYL 100 MCG/2 ML INJECTION IV PRN (14:58)
[2024-05-18] MEDS: MIDAZOLAM INJ 2MG/2ML VIAL IV PRN (14:58)
[2024-05-18] MEDS: LIDOCAINE 1% MDV 20ML VIAL SC ONE (15:04)
[2024-05-18 16:50] VITALS: BP 173/97; O2SAT 97
== END ==
LOC: M IRPRO 13:13
PROVIDERS: ATTEND General Practice
DX: C79.51 Secondary malignant neoplasm of bone (principal)
CPT/HCPCS: 36590; 99152; J0690; J2250; J3010

== ENCOUNTER → 2024-07-05 | Outpatient (REF) | payer MEDICARE, OTHER ==
[~2024-07-05] MED LIST changes: -LIDOCAINE 1% MDV 20ML VIAL As Ordered ONE; -NALOXONE INJ 0.4MG/1ML VIAL IV PRN; -NS (Normal Saline) 0.9% 1,000 ML IV SCH; +[UNRECOGNIZED DRUG - CODE] PO
== END ==
LOC: M LAB REF 15:21
PROVIDERS: ATTEND Physician Assistant Medical
DX: R19.7 Diarrhea, unspecified (principal)

== ENCOUNTER → 2024-07-11 | Outpatient (CLI) | payer MEDICARE | LOC: M ONCR 10:00 | PROVIDERS: ATTEND General Practice | DX: C64.1 Malignant neoplasm of right kidney, except renal pelvis (principal); C79.51 Secondary malignant neoplasm of bone; J91.0 Malignant pleural effusion; Z87.891 Personal history of nicotine dependence; Z79.620 Long term (current) use of immunosuppressive biologic; Z79.890 Hormone replacement therapy; Z79.899 Other long term (current) drug therapy; Z92.3 Personal history of irradiation; Z97.8 Presence of other specified devices ==

== ENCOUNTER → 2024-07-21 | Outpatient (REF) | payer MEDICARE, OTHER, MEDICAID ==
[~2024-07-21] MED LIST changes: +KETO120S5; -KETO2SHA8
== END ==
LOC: M SFHCDERM 16:57
PROVIDERS: ATTEND Nurse Practitioner Family
DX: T14.8XXA Other injury of unspecified body region, initial encounter (principal); W18.30XA Fall on same level, unspecified, initial encounter; Y92.009 Unspecified place in unspecified non-institutional (private) residence as the place of occurrence of the external cause

== ENCOUNTER → 2024-08-07 | Outpatient (REF) | payer MEDICARE ==
[~2024-08-07] MED LIST changes: +ACYC-438 PO; -ACYC1TAB PO
== END ==
LOC: M SFHCDERM 17:05
PROVIDERS: ATTEND Nurse Practitioner Family
DX: T14.8XXA Other injury of unspecified body region, initial encounter (principal); W18.30XA Fall on same level, unspecified, initial encounter; Y92.009 Unspecified place in unspecified non-institutional (private) residence as the place of occurrence of the external cause

== ENCOUNTER → 2024-08-14 | Outpatient (CLI) | payer MEDICARE | LOC: M PLARAD 11:30 | PROVIDERS: ATTEND Specialist | DX: C64.1 Malignant neoplasm of right kidney, except renal pelvis (principal) | CPT/HCPCS: 78815; A9552 ==

== ENCOUNTER → 2024-08-16 | Outpatient (REF) | payer MEDICARE | LOC: M SFHCDERM 17:18 | PROVIDERS: ATTEND Dermatology | DX: T14.90XD Injury, unspecified, subsequent encounter (principal) ==

== ENCOUNTER 2024-09-28 20:35 | Inpatient (IN) | payer MEDICARE ==
[~2024-09-28] VITALS: Ht 175.3 cm; Wt 93.0 kg
[~2024-09-28 20:35] MED LIST changes: +FAMO1TAB11 PO; +LEVO25TA5 PO; +POTA-151 PO; +ROLLMIS8 XX
[2024-09-29] MEDS: NS (Normal Saline) 0.9% 1,000 ML IV ONE ×2 (00:16→08:34)
[2024-09-29 00:27] LABS: BASO # 0.0 10^3/uL (0.0-0.2); BASO % 0.9 % (0.0-1.0); EOS # 0.1 10^3/uL (0.0-0.5); EOS % 3.1 % (0.0-3.0); LYMPH # 1.2 10^3/uL (1.5-5.0); LYMPH % 27.8 % (24.0-44.0); MONO # 0.6 10^3/uL (0.0-0.8); MONO % 13.2 % (2.0-8.0); NEUTROPHILS # 2.4 10^3/uL (1.5-8.5); NEUTROPHILS % 54.6 % (36.0-66.0); PLATELET COUNT, AUTOMATED 161 10^3/uL (150-450)
[2024-09-29 01:03] LABS: ALT/SGPT 42 U/L (7.0-40); AST/SGOT 65 U/L (<34); CALCIUM LEVEL 8.5 MG/DL (8.3-10.6); CARBON DIOXIDE LEVEL 23 MMOL/L (20-31); CHLORIDE LEVEL 99 MMOL/L (98-107); CPK CREATINE PHOSPHOKINASE 39 U/L (46-171); CREATININE FOR GFR 0.83 MG/DL (0.70-1.30); GLOMERULAR FILTRATION RATE > 90.0 (>49); POTASSIUM SERUM 5.3 MMOL/L (3.5-5.1); SODIUM LEVEL 135 MMOL/L (136-145)
[2024-09-29 01:04] LABS: CK-MB VALUE MASS 1.6 NG/ML (<3.6); MAGNESIUM LEVEL 1.6 MG/DL (1.8-2.4); MB/CK RELATIVE INDEX 4.10 (< OR =4)
[2024-09-29 01:23] LABS: KETONE, URINE AUTO RFX 1+ mg/dL (NEGATIVE); LEUKOCYTE ESTERASE UR AUTO RFX NEGATIVE (NEGATIVE); MUCUS, URINE RFX SMALL (NEGATIVE); NITRITE, URINE AUTO RFX NEGATIVE (NEGATIVE); RBC, URINE AUTO RFX 0 /HPF (0-3); SQUAM EPITHELIAL CELL UR AURFX 0 /HPF (0-6); WBC, URINE AUTO RFX 1 /HPF (0-3)
[2024-09-29] MEDS ORDERED: ISOVUE-370 76% 100 ML VIAL As Ordered ONE (01:56)
[2024-09-29] MEDS: MAG SULF 1GM/100ML (MAG RUN) 1 GM in IV 1 EA IV ONE ×2 (02:48→08:36)
[2024-09-29] MEDS: FAMOTIDINE 20 MG TAB PO ONE (04:40)
[2024-09-29] MEDS: clonazePAM 1 MG TAB PO ONE (04:40)
[2024-09-29] MEDS: ACYCLOVIR 200 MG CAPSULE PO ONE (04:40)
[2024-09-29] MEDS: LEVOTHYROXINE 100 MCG TABLET (0.1 MG) PO SCH (06:00)
[2024-09-29] MEDS ORDERED: POTA-151 PO (09:06)
[2024-09-29] MEDS ORDERED: LEVO25TA5 PO (09:06)
[2024-09-29] MEDS ORDERED: HOME MED LIST COMPLETE! XX SCH (09:10)
[2024-09-29 10:00] VITALS: BP 145/80; TEMP 97.2; O2SAT 96
[2024-09-29 10:10] LABS: INR 1.02
[2024-09-29 10:13] LABS: HEPATITIS C VIRUS ABY INDEX 0.04 INDEX (<0.8)
[2024-09-29] MEDS: NS (Normal Saline) 0.9% 1,000 ML IV SCH (10:22)
[2024-09-29 12:00] VITALS: BP 144/81; TEMP 97.7
[2024-09-29] MEDS: amLODIPine 10 MG TAB PO SCH (12:05)
[2024-09-29 15:41] LABS: ALT/SGPT 61 U/L (7.0-40); AST/SGOT 97 U/L (<34); CALCIUM LEVEL 7.9 MG/DL (8.3-10.6); CARBON DIOXIDE LEVEL 24 MMOL/L (20-31); CHLORIDE LEVEL 104 MMOL/L (98-107); CREATININE FOR GFR 0.57 MG/DL (0.70-1.30); GLOMERULAR FILTRATION RATE > 90.0 (>49); POTASSIUM SERUM 4.2 MMOL/L (3.5-5.1); SODIUM LEVEL 139 MMOL/L (136-145)
[2024-09-29] MEDS: ENOXAPARIN 40 MG/0.4 ML SYRINGE (J1650 PER 10MG) SC SCH (16:44)
[2024-09-29] MEDS: clonazePAM 1 MG TAB PO SCH (20:45)
[2024-09-29] MEDS: ACYCLOVIR 200 MG CAPSULE PO SCH (20:45)
[2024-09-30 04:00] VITALS: BP 141/83; TEMP 97.7; O2SAT 98
[2024-09-30 05:57] LABS: PLATELET COUNT, AUTOMATED 152 10^3/uL (150-450)
[2024-09-30 06:24] LABS: ALT/SGPT 141 U/L (7.0-40); AST/SGOT 224 U/L (<34); CALCIUM LEVEL 8.0 MG/DL (8.3-10.6); CARBON DIOXIDE LEVEL 23 MMOL/L (20-31); CHLORIDE LEVEL 104 MMOL/L (98-107); CREATININE FOR GFR 0.54 MG/DL (0.70-1.30); GLOMERULAR FILTRATION RATE > 90.0 (>49); MAGNESIUM LEVEL 1.5 MG/DL (1.8-2.4); POTASSIUM SERUM 3.9 MMOL/L (3.5-5.1); SODIUM LEVEL 141 MMOL/L (136-145)
[2024-09-30] MEDS: FAMOTIDINE 20 MG TAB PO SCH (08:37)
[2024-09-30] MEDS: MAG SULF 1GM/100ML (MAG RUN) 1 GM in IV 1 EA IV SCH (08:40)
[2024-09-30 12:00] VITALS: BP 140/84; TEMP 97.5; O2SAT 95
[2024-09-30] MEDS: predniSONE 20 MG TAB PO SCH (13:14)
[2024-09-30 20:53] VITALS: BP 155/93; TEMP 97.7; O2SAT 97
[2024-10-01 04:00] VITALS: BP 152/97; TEMP 97.2; O2SAT 97
[2024-10-01 06:10] LABS: BASO # 0.0 10^3/uL (0.0-0.2); BASO % 0.2 % (0.0-1.0); EOS # 0.0 10^3/uL (0.0-0.5); EOS % 0.0 % (0.0-3.0); LYMPH # 0.6 10^3/uL (1.5-5.0); LYMPH % 14.9 % (24.0-44.0); MONO # 0.3 10^3/uL (0.0-0.8); MONO % 7.6 % (2.0-8.0); NEUTROPHILS # 3.2 10^3/uL (1.5-8.5); NEUTROPHILS % 76.8 % (36.0-66.0); PLATELET COUNT, AUTOMATED 169 10^3/uL (150-450)
[2024-10-01 06:24] LABS: INR 0.89
[2024-10-01 06:33] LABS: ALT/SGPT 132 U/L (7.0-40); AST/SGOT 90 U/L (<34); CALCIUM LEVEL 8.2 MG/DL (8.3-10.6); CARBON DIOXIDE LEVEL 22 MMOL/L (20-31); CHLORIDE LEVEL 103 MMOL/L (98-107); CREATININE FOR GFR 0.56 MG/DL (0.70-1.30); GLOMERULAR FILTRATION RATE > 90.0 (>49); POTASSIUM SERUM 4.3 MMOL/L (3.5-5.1); SODIUM LEVEL 138 MMOL/L (136-145)
[2024-10-01 07:47] LABS: CORTISOL AM 14.9 UG/DL (4.3-22.4)
[2024-10-01 07:53] LABS: MAGNESIUM LEVEL 1.8 MG/DL (1.8-2.4)
[2024-10-01 12:00] VITALS: BP 144/89; TEMP 97.7; O2SAT 97
[2024-10-01 21:05] VITALS: BP 156/95; TEMP 97.9; O2SAT 95
[2024-10-02 04:11] VITALS: BP 133/83; TEMP 98.7; O2SAT 96
[2024-10-02 06:20] LABS: BASO # 0.0 10^3/uL (0.0-0.2); BASO % 0.1 % (0.0-1.0); EOS # 0.0 10^3/uL (0.0-0.5); EOS % 0.0 % (0.0-3.0); LYMPH # 1.1 10^3/uL (1.5-5.0); LYMPH % 14.0 % (24.0-44.0); MONO # 0.9 10^3/uL (0.0-0.8); MONO % 12.2 % (2.0-8.0); NEUTROPHILS # 5.6 10^3/uL (1.5-8.5); NEUTROPHILS % 73.0 % (36.0-66.0); PLATELET COUNT, AUTOMATED 187 10^3/uL (150-450)
[2024-10-02 06:55] LABS: ALT/SGPT 92 U/L (7.0-40); AST/SGOT 44 U/L (<34); CALCIUM LEVEL 8.2 MG/DL (8.3-10.6); CARBON DIOXIDE LEVEL 24 MMOL/L (20-31); CHLORIDE LEVEL 107 MMOL/L (98-107); CREATININE FOR GFR 0.65 MG/DL (0.70-1.30); GLOMERULAR FILTRATION RATE > 90.0 (>49); MAGNESIUM LEVEL 1.8 MG/DL (1.8-2.4); POTASSIUM SERUM 4.2 MMOL/L (3.5-5.1); SODIUM LEVEL 142 MMOL/L (136-145)
[2024-10-02 12:00] VITALS: BP 134/84; TEMP 98.6; O2SAT 98
[2024-10-02 19:38] VITALS: BP 139/91; TEMP 97.9; O2SAT 94
[2024-10-03 03:51] VITALS: BP 129/81; TEMP 98.6; O2SAT 98
[2024-10-03 07:10] LABS: BASO # 0.0 10^3/uL (0.0-0.2); BASO % 0.1 % (0.0-1.0); EOS # 0.0 10^3/uL (0.0-0.5); EOS % 0.4 % (0.0-3.0); LYMPH # 1.2 10^3/uL (1.5-5.0); LYMPH % 13.2 % (24.0-44.0); MONO # 0.8 10^3/uL (0.0-0.8); MONO % 9.0 % (2.0-8.0); NEUTROPHILS # 7.0 10^3/uL (1.5-8.5); NEUTROPHILS % 76.8 % (36.0-66.0); PLATELET COUNT, AUTOMATED 202 10^3/uL (150-450)
[2024-10-03 07:39] LABS: ALT/SGPT 89 U/L (7.0-40); AST/SGOT 49 U/L (<34); CALCIUM LEVEL 8.1 MG/DL (8.3-10.6); CARBON DIOXIDE LEVEL 26 MMOL/L (20-31); CHLORIDE LEVEL 107 MMOL/L (98-107); CREATININE FOR GFR 0.59 MG/DL (0.70-1.30); GLOMERULAR FILTRATION RATE > 90.0 (>49); MAGNESIUM LEVEL 1.6 MG/DL (1.8-2.4); POTASSIUM SERUM 3.8 MMOL/L (3.5-5.1); SODIUM LEVEL 141 MMOL/L (136-145)
[2024-10-03 09:39] VITALS: BP 145/95
[2024-10-03] MEDS: predniSONE 20 MG TAB PO SCH (09:40)
[2024-10-03 09:51] VITALS: BP 145/93
[2024-10-03] MEDS ORDERED: MAGN400T35 PO (10:07)
[2024-10-03] MEDS ORDERED: PRED10TA2 PO (10:07)
[2024-10-03] MEDS ORDERED: CARV6.25 PO (10:07)
[2024-10-03] MEDS: MAG SULF 1GM/100ML (MAG RUN) 1 GM in IV 1 EA IV SCH (11:23)
[2024-10-03 12:00] VITALS: BP 128/75; TEMP 98.1
[2024-10-05 17:09] LABS: ACETYLCHOLINE RCPTOR BINDING A < 0.30 nmol/L (<=0.30)
== END 2024-10-03 15:30 | disposition home health service (06) | DRG 442 ==
LOC: M ED 20:35 → M ED INP 09-29 08:15 → M MS5PR 09-29 09:55
PROVIDERS: ADMIT Internal Medicine; ATTEND Internal Medicine
DX: K76.89 Other specified diseases of liver (principal); E87.1 Hypo-osmolality and hyponatremia; C79.51 Secondary malignant neoplasm of bone; C64.1 Malignant neoplasm of right kidney, except renal pelvis; C78.1 Secondary malignant neoplasm of mediastinum; C34.90 Malignant neoplasm of unspecified part of unspecified bronchus or lung; J91.0 Malignant pleural effusion; T45.1X5A Adverse effect of antineoplastic and immunosuppressive drugs, initial encounter; I10 Essential (primary) hypertension; K21.9 Gastro-esophageal reflux disease without esophagitis; E78.5 Hyperlipidemia, unspecified; F32.A Depression, unspecified; E03.9 Hypothyroidism, unspecified; E80.6 Other disorders of bilirubin metabolism; R74.01 Elevation of levels of liver transaminase levels; E83.42 Hypomagnesemia; R19.7 Diarrhea, unspecified; Z79.890 Hormone replacement therapy; Z79.899 Other long term (current) drug therapy; Z85.828 Personal history of other malignant neoplasm of skin

== ENCOUNTER 2024-10-16 19:59 | Emergency (ER) | payer MEDICAID, MEDICARE, OTHER ==
[~2024-10-16] VITALS: Ht 175.3 cm; Wt 100.0 kg
[~2024-10-16 19:59] MED LIST changes: +CARV6.25 PO; +MAGN400T35 PO; +PRED10TA2 PO
[2024-10-16] MEDS: SILVER NITRATE APPLICATOR (1 = QTY 10) TOP ONE ×2 (20:35→23:00)
[2024-10-16 21:11] LABS: BASO # 0.0 10^3/uL (0.0-0.2); BASO % 0.2 % (0.0-1.0); EOS # 0.0 10^3/uL (0.0-0.5); EOS % 0.0 % (0.0-3.0); LYMPH # 1.3 10^3/uL (1.5-5.0); LYMPH % 11.3 % (24.0-44.0); MONO # 0.7 10^3/uL (0.0-0.8); MONO % 6.4 % (2.0-8.0); NEUTROPHILS # 9.0 10^3/uL (1.5-8.5); NEUTROPHILS % 80.8 % (36.0-66.0); PLATELET COUNT, AUTOMATED 229 10^3/uL (150-450)
[2024-10-16 21:31] LABS: CALCIUM LEVEL 8.6 MG/DL (8.3-10.6); CARBON DIOXIDE LEVEL 25 MMOL/L (20-31); CHLORIDE LEVEL 101 MMOL/L (98-107); CREATININE FOR GFR 0.69 MG/DL (0.70-1.30); GLOMERULAR FILTRATION RATE > 90.0 (>49); POTASSIUM SERUM 4.1 MMOL/L (3.5-5.1); SODIUM LEVEL 139 MMOL/L (136-145)
[2024-10-16 21:39] LABS: INR 0.89
[2024-10-16 23:01] VITALS: TEMP 98.2
[2024-10-16 23:06] VITALS: BP 164/85
[2024-10-16] MEDS: FUROSEMIDE 20 MG/2 ML VIAL IV ONE (23:06)
[2024-10-16 23:07] VITALS: BP 165/85
[2024-10-16] MEDS: MORPHINE 2 MG/ML 1 ML VIAL IV ONE (23:07)
[2024-10-16] MEDS ORDERED: LASI20TA3 PO (23:16)
[2024-10-16 23:30] VITALS: O2SAT 99
[2024-10-18] MEDS ORDERED: FURO20TA2 PO (10:05)
[2024-10-18] MEDS ORDERED: SERT-141 PO (10:13)
[2024-10-19] MEDS ORDERED: INLY5TAB (09:17)
[2024-10-23] MEDS ORDERED: LEVO75TA4 PO (13:40)
[2024-10-23] MEDS ORDERED: LEVO25TA5 PO (13:40)
== END 2024-10-16 23:43 | disposition home or self-care (01) ==
LOC: M ED 19:59
DX: R60.0 Localized edema (principal); L97.829 Non-pressure chronic ulcer of other part of left lower leg with unspecified severity; I10 Essential (primary) hypertension; K21.9 Gastro-esophageal reflux disease without esophagitis; E03.9 Hypothyroidism, unspecified; F41.9 Anxiety disorder, unspecified; F32.A Depression, unspecified; Z79.2 Long term (current) use of antibiotics; Z79.899 Other long term (current) drug therapy; Z79.52 Long term (current) use of systemic steroids
CPT/HCPCS: 11042; 71045; 80048; 85025; 85610; 85730; 86850; 86900; 86901; 93971; 96374; 96375; 99284; G0463; J1938

== ENCOUNTER → 2024-10-18 | Outpatient (CLI) | payer MEDICARE ==
[~2024-10-18] MED LIST changes: +FURO20TA2 PO; +INLY5TAB; +LASI20TA3 PO; +SERT-141 PO
== END ==
LOC: M ONCR 09:02
PROVIDERS: ATTEND General Practice
DX: C79.51 Secondary malignant neoplasm of bone (principal); C64.1 Malignant neoplasm of right kidney, except renal pelvis; R60.0 Localized edema; L97.829 Non-pressure chronic ulcer of other part of left lower leg with unspecified severity; F32.A Depression, unspecified; Z92.3 Personal history of irradiation; Z87.891 Personal history of nicotine dependence; Z79.890 Hormone replacement therapy; Z79.52 Long term (current) use of systemic steroids; Z79.899 Other long term (current) drug therapy

== ENCOUNTER → 2024-10-31 | Outpatient (CLI) | payer MEDICARE ==
[~2024-10-31] MED LIST changes: +ISOVUE-370 76% 100 ML VIAL As Ordered ONE
== END ==
LOC: M RAD 15:32
PROVIDERS: ATTEND Surgery
DX: S81.802A Unspecified open wound, left lower leg, initial encounter (principal); R68.89 Other general symptoms and signs; L97.912 Non-pressure chronic ulcer of unspecified part of right lower leg with fat layer exposed; W18.30XA Fall on same level, unspecified, initial encounter; Y92.009 Unspecified place in unspecified non-institutional (private) residence as the place of occurrence of the external cause
CPT/HCPCS: 75635; Q9967

== ENCOUNTER → 2024-11-01 | Outpatient (CLI) | payer MEDICARE ==
[~2024-11-01] MED LIST changes: -ISOVUE-370 76% 100 ML VIAL As Ordered ONE
== END ==
LOC: M ONCR 08:50
PROVIDERS: ATTEND General Practice
DX: R60.0 Localized edema (principal); Z90.5 Acquired absence of kidney

== ENCOUNTER → 2024-12-28 | Outpatient (CLI) | payer MEDICARE ==
[~2024-12-28] MED LIST changes: +ISOVUE-370 76% 100 ML VIAL As Ordered ONE; +SYNT100T PO
== END ==
LOC: M RAD 09:51
PROVIDERS: ATTEND Specialist
DX: C64.1 Malignant neoplasm of right kidney, except renal pelvis (principal)
CPT/HCPCS: 71260; Q9967

== ENCOUNTER 2024-12-29 17:45 | Emergency (ER) | payer MEDICARE, OTHER ==
[~2024-12-29] VITALS: Ht 177.8 cm; Wt 92.4 kg
[~2024-12-29 17:45] MED LIST changes: -ISOVUE-370 76% 100 ML VIAL As Ordered ONE; -SYNT100T PO
[2024-12-29] MEDS ORDERED: hydrALAZINE 20 MG/ML 1 ML VIAL IV ONE (18:25)
[2024-12-29 19:06] LABS: BASO # 0.0 10^3/uL (0.0-0.2); BASO % 0.8 % (0.0-1.0); EOS # 0.1 10^3/uL (0.0-0.5); EOS % 2.8 % (0.0-3.0); LYMPH # 2.0 10^3/uL (1.5-5.0); LYMPH % 38.3 % (24.0-44.0); MONO # 0.4 10^3/uL (0.0-0.8); MONO % 8.3 % (2.0-8.0); NEUTROPHILS # 2.5 10^3/uL (1.5-8.5); NEUTROPHILS % 49.4 % (36.0-66.0); PLATELET COUNT, AUTOMATED 296 10^3/uL (150-450)
[2024-12-29 19:44] LABS: ALT/SGPT 22 U/L (7.0-40); AST/SGOT 25 U/L (<34); CALCIUM LEVEL 8.2 MG/DL (8.3-10.6); CARBON DIOXIDE LEVEL 26 MMOL/L (20-31); CHLORIDE LEVEL 102 MMOL/L (98-107); CREATININE FOR GFR 0.65 MG/DL (0.70-1.30); GLOMERULAR FILTRATION RATE > 90.0 (>49); POTASSIUM SERUM 3.4 MMOL/L (3.5-5.1); SODIUM LEVEL 139 MMOL/L (136-145)
[2024-12-29 20:30] VITALS: BP 191/91
[2024-12-29] MEDS: ACETAMINOPHEN *IV* 1,000 MG in IV 1 EA IV ONE (20:31)
[2024-12-29 22:32] VITALS: TEMP 97
[2024-12-29 22:33] VITALS: O2SAT 97
[2024-12-29 22:36] VITALS: BP 165/93
[2024-12-29] MEDS: SODIUM CHLORIDE 0.9% INJ 10 ML SYR IV SCH (22:56)
[2024-12-29] MEDS: HEPARIN LOCK FLUSH 100 UNITS/ML 3 ML SYRINGE IV SCH (22:56)
== END 2024-12-29 23:26 | disposition home or self-care (01) ==
LOC: M ED 17:45
DX: R51.9 Headache, unspecified (principal); I10 Essential (primary) hypertension; R00.1 Bradycardia, unspecified; I44.0 Atrioventricular block, first degree; K21.9 Gastro-esophageal reflux disease without esophagitis; E03.9 Hypothyroidism, unspecified; F41.9 Anxiety disorder, unspecified; F32.A Depression, unspecified; Z79.2 Long term (current) use of antibiotics; Z79.899 Other long term (current) drug therapy; Z79.52 Long term (current) use of systemic steroids
CPT/HCPCS: 70450; 80048; 80076; 85025; 93005; 93041; 94760; 96365; 96366; 99285; J0131; J1642

== ENCOUNTER → 2025-02-01 | Outpatient (CLI) | payer MEDICARE ==
[~2025-02-01] MED LIST changes: +LEVO100T5 PO; +LOSA-527 PO; +LOSA25TA13 PO; +SANT250O8 TOP; +SERT50TA29 PO; +SYNT100T PO; +ZOLO100T PO
== END ==
LOC: M ONCR 10:22
PROVIDERS: ATTEND Radiology Radiation Oncology
DX: C79.51 Secondary malignant neoplasm of bone (principal); Z92.3 Personal history of irradiation; Z79.620 Long term (current) use of immunosuppressive biologic; Z87.891 Personal history of nicotine dependence; Z79.891 Long term (current) use of opiate analgesic; Z79.899 Other long term (current) drug therapy; Z85.528 Personal history of other malignant neoplasm of kidney

== ENCOUNTER 2025-02-07 17:25 | Observation (INO) | payer MEDICARE, OTHER ==
[~2025-02-07] VITALS: Ht 175.3 cm; Wt 89.3 kg
[~2025-02-07 17:25] MED LIST changes: -LEVO100T5 PO; -LOSA-527 PO; -LOSA25TA13 PO; -SANT250O8 TOP; -SERT50TA29 PO; -ZOLO100T PO
[2025-02-07 18:42] LABS: BASO # 0.0 10^3/uL (0.0-0.2); BASO % 0.8 % (0.0-1.0); EOS # 0.2 10^3/uL (0.0-0.5); EOS % 3.7 % (0.0-3.0); LYMPH # 1.8 10^3/uL (1.5-5.0); LYMPH % 36.2 % (24.0-44.0); MONO # 0.4 10^3/uL (0.0-0.8); MONO % 9.1 % (2.0-8.0); NEUTROPHILS # 2.4 10^3/uL (1.5-8.5); NEUTROPHILS % 50.0 % (36.0-66.0); PLATELET COUNT, AUTOMATED 187 10^3/uL (150-450)
[2025-02-07 18:49] LABS: CK-MB VALUE MASS < 1.0 NG/ML (<3.6)
[2025-02-07 18:50] LABS: ALT/SGPT 28 U/L (7.0-40); AST/SGOT 31 U/L (<34); CALCIUM LEVEL 8.6 MG/DL (8.3-10.6); CARBON DIOXIDE LEVEL 22 MMOL/L (20-31); CHLORIDE LEVEL 105 MMOL/L (98-107); CREATININE FOR GFR 0.59 MG/DL (0.70-1.30); GLOMERULAR FILTRATION RATE > 90.0 (>49); POTASSIUM SERUM 3.6 MMOL/L (3.5-5.1); SODIUM LEVEL 141 MMOL/L (136-145)
[2025-02-07 18:53] LABS: FREE T4 1.21 NG/DL (0.89-1.76)
[2025-02-07 18:54] LABS: CPK CREATINE PHOSPHOKINASE 39 U/L (46-171)
[2025-02-07 20:19] LABS: CK-MB VALUE MASS < 1.0 NG/ML (<3.6)
[2025-02-07 20:25] LABS: CPK CREATINE PHOSPHOKINASE 37 U/L (46-171)
[2025-02-07 20:51] LABS: INR 1.02
[2025-02-07] MEDS: hydrALAZINE 20 MG/ML 1 ML VIAL IV ONE (22:41)
[2025-02-07] MEDS ORDERED: LEVO100T5 PO (23:07)
[2025-02-07] MEDS ORDERED: ZOLO100T PO (23:07)
[2025-02-07] MEDS ORDERED: SANT250O8 TOP (23:09)
[2025-02-07] MEDS ORDERED: HOME MED LIST COMPLETE! XX SCH (23:10)
[2025-02-08] MEDS ORDERED: ACETAMINOPHEN 325 MG TAB PO PRN
[2025-02-08] MEDS: ACYCLOVIR 200 MG CAPSULE PO SCH (00:50)
[2025-02-08] MEDS: SERTRALINE 100 MG TAB PO SCH (00:50)
[2025-02-08] MEDS: FUROSEMIDE 100 MG/10 ML VIAL IV ONE (00:50)
[2025-02-08] MEDS: clonazePAM 1 MG TAB PO SCH (00:50)
[2025-02-08 03:43] VITALS: BP 107/75; TEMP 97.4; O2SAT 96
[2025-02-08] MEDS: **hydrALAZINE HCL** 25 MG TAB PO SCH (06:00)
[2025-02-08] MEDS: LEVOTHYROXINE 100 MCG TABLET (0.1 MG) PO SCH (06:16)
[2025-02-08 06:33] LABS: BASO # 0.0 10^3/uL (0.0-0.2); BASO % 0.6 % (0.0-1.0); EOS # 0.2 10^3/uL (0.0-0.5); EOS % 3.1 % (0.0-3.0); LYMPH # 1.9 10^3/uL (1.5-5.0); LYMPH % 35.8 % (24.0-44.0); MONO # 0.6 10^3/uL (0.0-0.8); MONO % 11.0 % (2.0-8.0); NEUTROPHILS # 2.6 10^3/uL (1.5-8.5); NEUTROPHILS % 49.1 % (36.0-66.0); PLATELET COUNT, AUTOMATED 197 10^3/uL (150-450)
[2025-02-08 07:00] LABS: CALCIUM LEVEL 8.1 MG/DL (8.3-10.6); CARBON DIOXIDE LEVEL 24 MMOL/L (20-31); CHLORIDE LEVEL 104 MMOL/L (98-107); CREATININE FOR GFR 0.59 MG/DL (0.70-1.30); GLOMERULAR FILTRATION RATE > 90.0 (>49); POTASSIUM SERUM 3.1 MMOL/L (3.5-5.1); SODIUM LEVEL 139 MMOL/L (136-145)
[2025-02-08] MEDS ORDERED: LOSA25TA13 PO (07:29)
[2025-02-08 08:46] VITALS: BP 117/73
[2025-02-08] MEDS: amLODIPine 5 MG TAB PO SCH (08:46)
[2025-02-08] MEDS: FUROSEMIDE 40 MG/4 ML VIAL IV SCH (08:47)
[2025-02-08] MEDS ORDERED: amLODIPine 10 MG TAB PO SCH (09:00)
== END 2025-02-08 09:27 | disposition home or self-care (01) ==
LOC: M ED 17:25 → M ED INP 17:26 → M MSPAV 02-08 03:11
PROVIDERS: ADMIT Internal Medicine Nephrology; ATTEND Student in an Organized Health Care Education/Training Program
DX: I16.0 Hypertensive urgency (principal); C64.1 Malignant neoplasm of right kidney, except renal pelvis; E03.9 Hypothyroidism, unspecified; F32.A Depression, unspecified; F41.9 Anxiety disorder, unspecified; I67.82 Cerebral ischemia; N40.0 Benign prostatic hyperplasia without lower urinary tract symptoms; E27.9 Disorder of adrenal gland, unspecified; I10 Essential (primary) hypertension; I71.43 Infrarenal abdominal aortic aneurysm, without rupture; S81.802D Unspecified open wound, left lower leg, subsequent encounter; C44.722 Squamous cell carcinoma of skin of right lower limb, including hip; I73.9 Peripheral vascular disease, unspecified; E78.5 Hyperlipidemia, unspecified; K71.9 Toxic liver disease, unspecified; T45.1X5D Adverse effect of antineoplastic and immunosuppressive drugs, subsequent encounter; Z79.899 Other long term (current) drug therapy; Z79.890 Hormone replacement therapy
CPT/HCPCS: 11042; 36415; 70450; 71046; 80048; 80053; 80076; 82550; 82553; 84439; 84443; 84484; 85025; 85610; 85730; 93005; 93041; 94760; 96374; 96375; 99285; J0360; J1938

== ENCOUNTER 2025-02-13 15:44 | Observation (INO) | payer MEDICARE ==
[~2025-02-13] VITALS: Ht 177.8 cm; Wt 88.2 kg
[~2025-02-13 15:44] MED LIST changes: +LEVO100T5 PO; +LOSA25TA13 PO; +SANT250O8 TOP; +ZOLO100T PO
[2025-02-13 16:34] LABS: BASO # 0.1 10^3/uL (0.0-0.2); BASO % 1.0 % (0.0-1.0); EOS # 0.2 10^3/uL (0.0-0.5); EOS % 3.0 % (0.0-3.0); LYMPH # 3.1 10^3/uL (1.5-5.0); LYMPH % 44.7 % (24.0-44.0); MONO # 0.5 10^3/uL (0.0-0.8); MONO % 7.7 % (2.0-8.0); NEUTROPHILS # 3.0 10^3/uL (1.5-8.5); NEUTROPHILS % 43.3 % (36.0-66.0); PLATELET COUNT, AUTOMATED 285 10^3/uL (150-450)
[2025-02-13] MEDS: NS (Normal Saline) 0.9% 1,000 ML IV ONE (16:43)
[2025-02-13 17:01] LABS: ALT/SGPT 29.0 U/L (7.0-40); AST/SGOT 26.0 U/L (<34); CALCIUM LEVEL 8.0 MG/DL (8.3-10.6); CARBON DIOXIDE LEVEL 26.0 MMOL/L (20-31); CHLORIDE LEVEL 105.0 MMOL/L (98-107); CREATININE FOR GFR 1.04 MG/DL (0.70-1.30); GLOMERULAR FILTRATION RATE 78.7 (>49); POTASSIUM SERUM 3.4 MMOL/L (3.5-5.1); SODIUM LEVEL 140.0 MMOL/L (136-145)
[2025-02-13] MEDS ORDERED: HOME MED LIST COMPLETE! XX SCH (17:10)
[2025-02-13] MEDS ORDERED: clonazePAM 1 MG TAB PO SCH (21:00)
[2025-02-13] MEDS: HEPARIN SOD 5000 UNITS/ML 1 ML VIAL/SYRINGE SC SCH (21:00)
[2025-02-13] MEDS: clonazePAM 0.5 MG TAB PO ONE (21:01)
[2025-02-13] MEDS ORDERED: SERT50TA29 PO (21:28)
[2025-02-13 23:57] VITALS: BP 166/87; TEMP 96.8; O2SAT 100
[2025-02-14] MEDS: SERTRALINE HCL 50 MG TAB PO SCH (00:22)
[2025-02-14] MEDS: POTASSIUM CHLORIDE 10MEQ SR TABLET PO ONE (00:23)
[2025-02-14 04:00] VITALS: BP 157/89; TEMP 98.3; O2SAT 95
[2025-02-14 05:54] LABS: PLATELET COUNT, AUTOMATED 230 10^3/uL (150-450)
[2025-02-14] MEDS: LEVOTHYROXINE 100 MCG TABLET (0.1 MG) PO SCH (06:02)
[2025-02-14 06:17] LABS: CALCIUM LEVEL 8.1 MG/DL (8.3-10.6); CARBON DIOXIDE LEVEL 26 MMOL/L (20-31); CHLORIDE LEVEL 105 MMOL/L (98-107); CREATININE FOR GFR 0.63 MG/DL (0.70-1.30); GLOMERULAR FILTRATION RATE > 90.0 (>49); MAGNESIUM LEVEL 1.6 MG/DL (1.8-2.4); POTASSIUM SERUM 3.6 MMOL/L (3.5-5.1); SODIUM LEVEL 140 MMOL/L (136-145)
[2025-02-14] MEDS: clonazePAM 1 MG TAB PO SCH (08:45)
[2025-02-14 08:46] VITALS: BP 132/85
[2025-02-14] MEDS: MAG SULF 1GM/100ML (MAG RUN) 1 GM in IV 1 EA IV SCH (11:44)
[2025-02-14 11:51] VITALS: BP 144/77; TEMP 97.7; O2SAT 96
[2025-03-12] MEDS ORDERED: VOTR200T2 PO (14:58)
== END 2025-02-14 16:15 | disposition home or self-care (01) ==
LOC: M ED 15:44 → M ED INP 15:45 → M MS4PR 23:57
PROVIDERS: ADMIT Internal Medicine; ATTEND Student in an Organized Health Care Education/Training Program
DX: I95.9 Hypotension, unspecified (principal); R42 Dizziness and giddiness; I10 Essential (primary) hypertension; C64.1 Malignant neoplasm of right kidney, except renal pelvis; E03.9 Hypothyroidism, unspecified; E87.6 Hypokalemia; F41.9 Anxiety disorder, unspecified; F32.A Depression, unspecified; S81.802D Unspecified open wound, left lower leg, subsequent encounter; X58.XXXD Exposure to other specified factors, subsequent encounter; N40.0 Benign prostatic hyperplasia without lower urinary tract symptoms; I71.43 Infrarenal abdominal aortic aneurysm, without rupture; I73.9 Peripheral vascular disease, unspecified; K71.9 Toxic liver disease, unspecified; T45.1X5D Adverse effect of antineoplastic and immunosuppressive drugs, subsequent encounter; Z87.891 Personal history of nicotine dependence; Z82.49 Family history of ischemic heart disease and other diseases of the circulatory system; Z79.899 Other long term (current) drug therapy; Z79.890 Hormone replacement therapy; Z66 Do not resuscitate
CPT/HCPCS: 36415; 71045; 80048; 80076; 83605; 83735; 84145; 84443; 85025; 85027; 87040; 87486; 87581; 87633; 87798; 93005; 93041; 94760; 96372; 96374; 97161; 97530; 99285; G0378; G0463; J3475

== ENCOUNTER 2025-02-19 11:51 | Inpatient (IN) | payer MEDICARE, OTHER ==
[~2025-02-19] VITALS: Ht 177.8 cm; Wt 85.3 kg
[~2025-02-19 11:51] MED LIST changes: +SERT50TA29 PO
[2025-02-19 13:33] LABS: APPEARANCE, URINE CLEAR (CLEAR); BACTERIA, URINE AUTO NEGATIVE (NEGATIVE); BILIRUBIN, URINE AUTO NEGATIVE (NEGATIVE); BLOOD, URINE BLOOD NEGATIVE (NEGATIVE); GLUCOSE, URINE (UA) AUTO NEGATIVE (NEGATIVE); KETONE, URINE AUTO NEGATIVE (NEGATIVE); LEUKOCYTE ESTERASE, URINE AUTO NEGATIVE (NEGATIVE); MUCUS, URINE SMALL (NEGATIVE); NITRITE, URINE AUTO NEGATIVE (NEGATIVE); PROTEIN, URINE AUTO NEGATIVE (NEGATIVE); RBC, URINE AUTO 0 /HPF (0-3); SPECIFIC GRAVITY URINE AUTO 1.019 (1.002-1.035); SQUAMOUS EPITHELIAL CELL UR AU 0 /HPF (0-6); UROBILINOGEN, URINE AUTO 2.0 mg/dL (0.0-2.0); WBC, URINE AUTO 2 /HPF (0-3)
[2025-02-19] MEDS ORDERED: LOSA25TA13 PO (13:33)
[2025-02-19] MEDS ORDERED: CARV6.25 PO (13:33)
[2025-02-19 13:34] LABS: ALT/SGPT 36.0 U/L (7.0-40); AST/SGOT 32.0 U/L (<34)
[2025-02-19] MEDS ORDERED: HOME MED LIST COMPLETE! XX SCH (13:40)
[2025-02-19 15:31] LABS: BASO # 0.0 10^3/uL (0.0-0.2); BASO % 0.6 % (0.0-1.0); EOS # 0.2 10^3/uL (0.0-0.5); EOS % 2.9 % (0.0-3.0); LYMPH # 2.4 10^3/uL (1.5-5.0); LYMPH % 37.5 % (24.0-44.0); MONO # 0.7 10^3/uL (0.0-0.8); MONO % 10.4 % (2.0-8.0); NEUTROPHILS # 3.0 10^3/uL (1.5-8.5); NEUTROPHILS % 48.3 % (36.0-66.0); PLATELET COUNT, AUTOMATED 206 10^3/uL (150-450)
[2025-02-19] MEDS: LOSARTAN 50 MG TABLET PO ONE (17:10)
[2025-02-19] MEDS: clonazePAM 1 MG TAB PO SCH (21:15)
[2025-02-19] MEDS: SERTRALINE HCL 50 MG TAB PO SCH (21:15)
[2025-02-19] MEDS: ACYCLOVIR 200 MG CAPSULE PO SCH (21:15)
[2025-02-20] VITALS (12 sets, daily range): BP systolic 89–161; BP diastolic 61–99; TEMP 97.2–98.1; O2SAT 89–97
[2025-02-20] MEDS: LEVOTHYROXINE 100 MCG TABLET (0.1 MG) PO SCH (06:02)
[2025-02-20 06:50] LABS: PLATELET COUNT, AUTOMATED 198 10^3/uL (150-450)
[2025-02-20 07:25] LABS: ALT/SGPT 31 U/L (7.0-40); AST/SGOT 25 U/L (<34); CALCIUM LEVEL 8.1 MG/DL (8.3-10.6); CARBON DIOXIDE LEVEL 24 MMOL/L (20-31); CHLORIDE LEVEL 106 MMOL/L (98-107); CREATININE FOR GFR 0.63 MG/DL (0.70-1.30); GLOMERULAR FILTRATION RATE > 90.0 (>49); POTASSIUM SERUM 3.6 MMOL/L (3.5-5.1); SODIUM LEVEL 141 MMOL/L (136-145)
[2025-02-20] MEDS: ENOXAPARIN 40 MG/0.4 ML SYRINGE (J1650 PER 10MG) SC SCH (10:14)
[2025-02-20] MEDS: LOSARTAN 25 MG TAB PO SCH (10:14)
[2025-02-20] MEDS ORDERED: CARV6.25 PO (11:29)
[2025-02-20] MEDS ORDERED: LOSA-527 PO (11:29)
[2025-02-20] MEDS ORDERED: ISOVUE-370 76% 100 ML VIAL As Ordered ONE (13:34)
[2025-02-20] MEDS: CLOPIDOGREL 75 MG TAB PO ONE (13:43)
[2025-02-20] MEDS: ASPIRIN 325 MG TAB PO ONE (13:43)
[2025-02-20] MEDS: ATORVASTATIN 20 MG TAB PO ONE (13:43)
[2025-02-20 14:30] LABS: ESTIMATED AVERAGE GLUCOSE 94.0 MG/DL (60-110)
[2025-02-20 14:31] LABS: INR 0.94
[2025-02-20 14:33] LABS: CHOLESTEROL LEVEL 163.0 MG/DL (<200); CHOLESTEROL RISK RATIO 6.19 (<5); LDL CHOLESTEROL 95.5 MG/DL (<100); NON-HDL-C 136.7 MG/DL; TRIGLYCERIDES LEVEL 206.0 MG/DL (<150)
[2025-02-21] VITALS (19 sets, daily range): BP systolic 101–143; BP diastolic 66–77; TEMP 97.3–98.8; O2SAT 87–100
[2025-02-21 05:24] LABS: BASO # 0.0 10^3/uL (0.0-0.2); BASO % 0.4 % (0.0-1.0); EOS # 0.2 10^3/uL (0.0-0.5); EOS % 2.4 % (0.0-3.0); LYMPH # 1.9 10^3/uL (1.5-5.0); LYMPH % 24.9 % (24.0-44.0); MONO # 0.9 10^3/uL (0.0-0.8); MONO % 11.7 % (2.0-8.0); NEUTROPHILS # 4.6 10^3/uL (1.5-8.5); NEUTROPHILS % 60.2 % (36.0-66.0); PLATELET COUNT, AUTOMATED 227 10^3/uL (150-450)
[2025-02-21 05:56] LABS: CALCIUM LEVEL 8.3 MG/DL (8.3-10.6); CARBON DIOXIDE LEVEL 26.0 MMOL/L (20-31); CHLORIDE LEVEL 102.0 MMOL/L (98-107); CREATININE FOR GFR 1.07 MG/DL (0.70-1.30); GLOMERULAR FILTRATION RATE 76.1 (>49); MAGNESIUM LEVEL 1.5 MG/DL (1.8-2.4); POTASSIUM SERUM 3.8 MMOL/L (3.5-5.1); SODIUM LEVEL 138.0 MMOL/L (136-145)
[2025-02-21] MEDS: MAG SULF 1GM/100ML (MAG RUN) 1 GM in IV 1 EA IV SCH (06:16)
[2025-02-21] MEDS ORDERED: MOM 30 ML SUSPENSION UDC PO PRN (07:45)
[2025-02-21] MEDS ORDERED: LOSARTAN 50 MG TABLET PO SCH (09:00)
[2025-02-21] MEDS: DOCUSATE SODIUM 100 MG CAPSULE PO SCH (09:09)
[2025-02-21] MEDS: ASPIRIN 81 MG ENTERIC TABLET PO SCH (09:10)
[2025-02-21] MEDS: ATORVASTATIN 20 MG TAB PO SCH (09:10)
[2025-02-21] MEDS: CLOPIDOGREL 75 MG TAB PO SCH (09:11)
[2025-02-21] MEDS: SENNA 8.6 MG TAB PO SCH (09:11)
[2025-02-21] MEDS: MAG SULF 1GM/100ML (MAG RUN) 1 GM in IV 1 EA IV ONE (09:13)
[2025-02-21] MEDS ORDERED: CLOP75TA2 PO (14:52)
[2025-02-21] MEDS ORDERED: ATOR80TA59 PO (14:52)
[2025-02-21] MEDS ORDERED: ASPI81TAEC PO (14:52)
[2025-02-22] VITALS (12 sets, daily range): BP systolic 136–137; BP diastolic 78–80; TEMP 97.6–97.8; O2SAT 93–99
[2025-02-22 05:25] LABS: BASO # 0.0 10^3/uL (0.0-0.2); BASO % 0.3 % (0.0-1.0); EOS # 0.2 10^3/uL (0.0-0.5); EOS % 2.8 % (0.0-3.0); LYMPH # 1.6 10^3/uL (1.5-5.0); LYMPH % 24.2 % (24.0-44.0); MONO # 0.8 10^3/uL (0.0-0.8); MONO % 11.3 % (2.0-8.0); NEUTROPHILS # 4.1 10^3/uL (1.5-8.5); NEUTROPHILS % 61.0 % (36.0-66.0); PLATELET COUNT, AUTOMATED 210 10^3/uL (150-450)
[2025-02-22 05:26] LABS: PLATELET COUNT, AUTOMATED 211 10^3/uL (150-450)
[2025-02-22 05:51] LABS: ALT/SGPT 22.0 U/L (7.0-40); AST/SGOT 19.0 U/L (<34); CALCIUM LEVEL 8.5 MG/DL (8.3-10.6); CARBON DIOXIDE LEVEL 25.0 MMOL/L (20-31); CHLORIDE LEVEL 100.0 MMOL/L (98-107); CREATININE FOR GFR 1.12 MG/DL (0.70-1.30); GLOMERULAR FILTRATION RATE 72.0 (>49); MAGNESIUM LEVEL 2.2 MG/DL (1.8-2.4); POTASSIUM SERUM 3.4 MMOL/L (3.5-5.1); SODIUM LEVEL 136.0 MMOL/L (136-145)
[2025-02-22] MEDS: POTASSIUM CHLORIDE 10% LIQ 20MEQ/15ML UDC PO ONE (08:34)
[2025-02-22] MEDS: SANTYL OINT 30GM TOP SCH (10:06)
[2025-02-22] MEDS ORDERED: AMLO25TA PO (10:24)
== END 2025-02-22 12:57 | disposition home health service (06) | DRG 65 ==
LOC: M ED 11:51 → M ED INP 11:52 → M ICU 02-20 07:58 → OBSVTOIN 02-20 16:50 → M PCU 02-21 10:46
PROVIDERS: ADMIT Internal Medicine; ATTEND Internal Medicine
PROC: B246ZZZ Ultrasonography of Right and Left Heart (ICD-10-PCS; principal; 2025-02-20)
DX: I63.9 Cerebral infarction, unspecified (principal); C64.9 Malignant neoplasm of unspecified kidney, except renal pelvis; I16.0 Hypertensive urgency; I10 Essential (primary) hypertension; F41.9 Anxiety disorder, unspecified; E03.9 Hypothyroidism, unspecified; R09.02 Hypoxemia; G89.29 Other chronic pain; R00.1 Bradycardia, unspecified; F39 Unspecified mood [affective] disorder; Z79.890 Hormone replacement therapy; Z79.899 Other long term (current) drug therapy; Z85.828 Personal history of other malignant neoplasm of skin

== ENCOUNTER → 2025-03-01 | Outpatient (REF) | payer MEDICARE ==
[~2025-03-01] MED LIST changes: +AMLO25TA PO; +ASPI81TAEC PO; +ATOR80TA59 PO; +CLOP75TA2 PO; +LOSA-527 PO; +VOTR200T2 PO
== END ==
LOC: M SFHCWOUN 17:29
PROVIDERS: ATTEND Surgery
DX: S81.802A Unspecified open wound, left lower leg, initial encounter (principal); L90.5 Scar conditions and fibrosis of skin; Y92.89 Other specified places as the place of occurrence of the external cause; Y93.89 Activity, other specified; Y99.8 Other external cause status

== ENCOUNTER → 2025-03-14 | Outpatient (REF) | payer MEDICARE, OTHER | LOC: M LAB REF 13:35 | PROVIDERS: ATTEND Nurse Practitioner Family | DX: R19.7 Diarrhea, unspecified (principal) ==

== ENCOUNTER → 2025-03-20 | Outpatient (CLI) | payer MEDICARE ==
[~2025-03-20] MED LIST changes: +ISOVUE-370 76% 100 ML VIAL As Ordered ONE
== END ==
LOC: M RAD 10:59
PROVIDERS: ATTEND Specialist
DX: C64.1 Malignant neoplasm of right kidney, except renal pelvis (principal); J90 Pleural effusion, not elsewhere classified; R91.8 Other nonspecific abnormal finding of lung field; J98.11 Atelectasis; N28.1 Cyst of kidney, acquired; I71.40 Abdominal aortic aneurysm, without rupture, unspecified
CPT/HCPCS: 71260; 74177; Q9967